=== PATIENT | male | born 1945 | race Caucasian/White ===

== ENCOUNTER 2020-12-13 11:58 | Outpatient (CLI) | payer MEDICARE, SELFPAY ==
[2020-12-13 12:59] LABS: Alanine Aminotransferase 25 U/L (16-63); Albumin Level 3.7 g/dL (3.4-5.0); Alkaline Phosphatase 121 U/L (46-116); Anion Gap 12 mmol/L (8-16); Aspartate Amino Transferase 14 U/L (15-37); Bilirubin Direct 0.3 mg/dL (0-0.2); Bilirubin,Total 0.7 mg/dL (0.00-1.00); Blood Urea Nitrogen 40 mg/dL (7-18); Calcium 9.4 mg/dL (8.5-10.1); Carbon Dioxide 27 mmol/L (21-32); Chloride 101 mmol/L (98-108); Cholesterol 117 mg/dL (0-200); Creatine Kinase 61 U/L (39-308); Estimated Glomerular Filt Rate 39; Glucose 135 mg/dL (70-99); HDL Direct 45 mg/dL (40-60); LDL Cholesterol Calculated 57 mg/dL (<130); Osmolality Calculated 301 mOsm/kg (285-295); Potassium 4.5 mmol/L (3.5-5.1); Sodium 140 mmol/L (136-145); Total Protein 7.1 g/dL (6.4-8.2); Triglycerides 76 mg/dL (0-150)
== END 2020-12-13 11:59 | disposition home or self-care (01) ==
LOC: CHSLAB 12:09
DX: I25.10 Atherosclerotic heart disease of native coronary artery without angina pectoris (principal); E78.49 Other hyperlipidemia
CPT/HCPCS: 36415; 80048; 80061; 80076; 82550

== ENCOUNTER 2020-12-20 13:29 | Outpatient (CLI) | payer MEDICARE, SELFPAY ==
[2020-12-20 14:20] LABS: Anion Gap 13 mmol/L (8-16); Blood Urea Nitrogen 63 mg/dL (7-18); Calcium 9.3 mg/dL (8.5-10.1); Carbon Dioxide 26 mmol/L (21-32); Chloride 101 mmol/L (98-108); Estimated Glomerular Filt Rate 32; Glucose 127 mg/dL (70-99); Osmolality Calculated 310 mOsm/kg (285-295); Potassium 4.5 mmol/L (3.5-5.1); Sodium 140 mmol/L (136-145)
== END 2020-12-20 13:30 | disposition home or self-care (01) ==
LOC: CHSLAB 13:35
DX: I42.0 Dilated cardiomyopathy (principal)
CPT/HCPCS: 36415; 80048

== ENCOUNTER 2020-12-28 13:09 | Outpatient (CLI) | payer MEDICARE, SELFPAY ==
[2020-12-28 14:31] LABS: Anion Gap 12 mmol/L (8-16); Blood Urea Nitrogen 44 mg/dL (7-18); Calcium 8.9 mg/dL (8.5-10.1); Carbon Dioxide 27 mmol/L (21-32); Chloride 100 mmol/L (98-108); Estimated Glomerular Filt Rate 35; Glucose 132 mg/dL (70-99); Osmolality Calculated 301 mOsm/kg (285-295); Potassium 3.7 mmol/L (3.5-5.1); Sodium 139 mmol/L (136-145)
== END 2020-12-28 13:10 | disposition home or self-care (01) ==
LOC: CHSLAB 13:16
DX: I25.5 Ischemic cardiomyopathy (principal)
CPT/HCPCS: 36415; 80048

== ENCOUNTER 2022-02-19 13:20 | Inpatient (IN) | payer MEDICARE, SELFPAY ==
[2022-02-19] VITALS (12 sets, daily range): BP systolic 88–111; BP diastolic 50–65; PULSE 67–83; RESP 16–36; TEMP 35.9–36.6; O2SAT 93–100; BMI 26.1
--- NOTE | ~2022-02-19 | US_ITS ---
US renal BI 02/20/2022 15:41 Procedure: Realtime transabdominal ultrasound of the kidneys and bladder. Indication: Acute on chronic renal failure Comparison: No prior studies for comparison. Findings: Renal echotexture is normal bilaterally without hydronephrosis, contour deforming mass or r enal calculus. The right kidney measures 10.1 cm and left kidney measures 10.4 cm. Bladder within no rmal limits. Impression: 1: Unremarkable renal ultrasound. No stones, masses or hydronephrosis. Reviewed, dictated and finalized at location A. NG MACHINE OPERATOR Impression: 1: Unremarkable renal ultrasound. No stones, masses or hydronephrosis.
--- NOTE | ~2022-02-19 | XR_ITS ---
XR chest 1V portable DATE: 02/19/2022 15:02 INDICATION: Shortness of breath TECHNIQUE: Portable upright AP chest on 02/19/2022 at 1455 hours COMPARISON: None FINDINGS: Status post sternotomy and coronary artery bypass graft surgery. Cardiomegaly. Aortic calcification and unfolding. Emphysematous changes of the lungs, particularly in the upper lung zones. There is prominence of the minor fissure suggesting subpleural edema and there are mild bilateral pleural effusions. There are i nfiltrates and atelectasis in the mid and particularly lower lung zones. IMPRESSION: Congestive changes Bilateral mid and lower lung infiltrates and/or atelectasis, likely due to pulmonary edema. Pneumonia is not excluded. COPD Status post sternotomy and CABG Aortic atherosclerosis Osteopenia Reviewed, dictated and finalized at location A. ALT WORKER IMPRESSION: Congestive changes Bilateral mid and lower lung infiltrates and/or atelectasis, likely due to pulm onary edema. Pneumonia is not excluded. COPD Status post sternotomy and CABG Aortic atherosclerosis Osteopenia
--- NOTE | ~2022-02-19 | US_ITS ---
EXAMINATION: US venous doppler [facility] DATE: 02/20/2022 15:41 INDICATION: Edema . TECHNIQUE: Grayscale images without and with compression and Doppler images of the bilateral lower ex tremity veins were obtained. COMPARISON: None FINDINGS: Partially compressible peroneal vein. The right common femoral vein, profunda (deep) femoral vein, fe moral vein, popliteal vein, posterior tibial veins, gastrocnemius vein, and greater saphenous vein ar e patent. The left common femoral vein, profunda femoral vein, femoral vein, and greater saphenous vein are pat ent. Patient was in pain and unable to continue examination, therefore the left mid and distal femora l, popliteal, posterior tibial, peroneal, and gastrocnemius veins were not evaluated. IMPRESSION: 1. Right peroneal venous thrombosis. The remaining right-sided veins were patent. 2. Limited evaluation of the left lower extremity, exam terminated early due to pain. Results reported telephonically to Farzana Watts RN by Dr. Sanchez at 4:12 PM on 02/20/2022. Reviewed, dictated and finalized at location K. IGRAPH OPERATOR IMPRESSION: 1. Right peroneal venous thrombosis. The remaining right-sided veins were stoner nt. 2. Limited evaluation of the left lower extremity, exam terminated early due to pain. Results reported telephonically to Farzana Watts RN by Dr. Sanchez at 4:12 PM on .
--- NOTE | ~2022-02-19 | CT_ITS ---
EXAMINATION: CT abdomen pelvis wo con DATE: 02/19/2022 15:50 INDICATION: Abdominal pain. Elevated liver function tests. TECHNIQUE: Computed tomography (CT) of the abdomen and pelvis was performed without intravenous contr ast. Automated exposure control and iterative reconstruction technique were employed. Exam dose: 849 .49 mGy-cm total exam DLP. COMPARISON: None. FINDINGS: Mild bilateral gynecomastia. There is prominent atelectasis and consolidation at the lung bases, including middle lobe, lingula an d both lower lobes. Emphysematous changes of the lungs. Cardiomegaly. Coronary artery prominent calcifications. Status post sternotomy. No pericardial effusion. Slight right pleural effusion. There is edema of the abdominal and pelvic graham and proximal thighs. There is surface nodularity of the liver suggesting cirrhosis. Normal splenic size. No apparent hepat ic, splenic, pancreatic, and adrenal or renal space-occupying mass lesion is noted on this limited no ncontrast examination. Prominent diffuse pancreatic atrophy. The gallbladder is present. No bile duct or pancreatic duct dilatation is evident. There is mild ascites primarily in the perihepatic, perisplenic area, right paracolic gutter and depe ndent pelvis. There is severe calcification of the abdominal aorta, celiac and superior mesenteric, renal arteries, inferior mesenteric artery as well as the iliac and femoral arteries. Approximately 3.8 cm infrarena l fusiform abdominal aortic aneurysm. 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 No intraperitoneal or retroperitoneal or pelvic mass lesion or adenopathy is detected. The urinary bladder and prostate gland are unremarkable. Mild sigmoid colon diverticulosis; no CT evidence of diverticulitis. No bowel obstruction or intraper itoneal free air. Small fat-containing umbilical hernia. Bilateral hip osteoarthritis. Mild degenerative change of the thoracic and lumbar spine. IMPRESSION: Cirrhosis, mild ascites Severe atherosclerosis Approximately 3.8 cm infrarenal abdominal aortic aneurysm Mild sigmoid diverticulosis Edema of the abdominal, pelvic graham and finalized Cardiomegaly Prominent atelectasis and/or consolidation at the lung bases Emphysema Status post sternotomy Reviewed, dictated and finalized at Location A. Reviewed, dictated and finalized at location A. IT OPERATOR
--- NOTE | 2022-02-19 13:35 | ECG_ITS ---
Measurements Intervals [place] Rate: 73 P: 140 CO: 212 QRS: 256 QRSD: 117 T: -23 QT: 443 QTc: 490 Interpretive Statements SINUS RHYTHM WITH FIRST DEGREE AV BLOCK INTRAVENTRICULAR CONDUCTION DELAY BORDERLINE R WAVE PROGRESSION, ANTERIOR LEADS LOW QRS VOLTAGE IN LIMB LEADS BORDERLINE ST-T WAVE ABNORMALITY- DIFFUSE LEADS BASELINE WANDER- II, III, AVR, AVL, AVF ABNORMAL ECG NO PREVIOUS ECG AVAILABLE FOR COMPARISON Electronically Signed On 02-19-2022 14:05:19 BLOOD BANK LABORATORY PROFESSIONAL by Wood Vega D.O.
--- NOTE | 2022-02-19 13:53 | ED.SOB ---
HPI - SOB/Dyspnea General Chief Complaint: Shortness of Breath/Dyspnea Stated Complaint: SOB, weakness Time Seen by Provider: 02/19/22 13:38 Source: patient, family, EMS and RN notes reviewed Mode of arrival: EMS Limitations: no limitations History of Present Illness HPI Narrative: This is a 77 year old male with history of CABG, CHF who presents for evaluation of shortness of breath and weakness. He reports cough for 2 weeks. His cough was initially productive with clear phlegm but it is no longer productive. He also reports shortness of breath with exertion for 1 week. He denies chest pain, fever. He does reports decreased PO intake and weakness. He states he is unable to walk because he is so weak. He is also having increasing bilateral leg swelling for 2 weeks. He also reports diarrhea for 2 weeks. He has had 1 episode of nonbloody diarrhea today. He also reports lower abdominal pain with coughing. He denies any medication changes or sick contacts. Related Data Home Medications Medication Instructions Recorded Confirmed clopidogrel 75 mg tablet 75 mg PO DAILY 02/19/22 02/19/22 ezetimibe 10 mg tablet 10 mg PO DAILY 02/19/22 02/19/22 furosemide 20 mg tablet 20 mg PO DAILY 02/19/22 02/19/22 magnesium 200 mg tablet 400 mg PO DAILY 02/19/22 02/19/22 metoprolol succinate 50 mg 25 mg PO DAILY 02/19/22 02/19/22 tablet,extended release 24 hr pantoprazole 40 mg tablet,delayed 40 mg PO QAM 02/19/22 02/19/22 release Allergies Allergy/AdvReac Type Severity Reaction Status Date / Time No Known Allergies Allergy Verified 02/19/22 15:02 Review of Systems Review of Systems: All systems reviewed & are unremarkable except as noted in HPI and below Constitutional: Constitutional: Reports fatigue and Reports weakness Cardiovascular: Cardiovascular: Denies chest pain, Denies syncope, Denies rapid heart rate, Denies irregular heart rhythm, Reports leg edema and Reports dyspnea Respiratory: Respiratory: Reports chest congestion, Reports cough, Denies hemoptysis, Denies excessive phlegm production and Reports dyspnea Gastrointestinal: Gastrointestinal: Reports abdominal pain, Denies hematochezia, Reports diarrhea and Denies vomiting Genitourinary: Genitourinary: Denies hematuria, Denies dysuria, Denies penile discharge and Denies testicular pain Musculoskeletal: Musculoskeletal: Denies joint swelling, Denies loss of height and Denies muscle weakness Neurologic: Denies syncope, Denies focal weakness and Reports weakness [facility] Past Medical History Medical History (Updated 02/19/22 @ 21:35 by Yvette Portillo MD) CHF (congestive heart failure) CHF (congestive heart failure), NYHA class I Chronic GERD Hyperlipidemia Surgical History Surgical History (Updated 02/19/22 @ 17:54 by Shelia Priest NP) H/O cataract extraction Hx of CABG 5 Family History Family History (Updated 02/19/22 @ 17:56 by Shelia Priest NP) Mother Carcinoma of colon Father Heart disease Acute myocardial infarction Social History Social History (Updated 02/19/22 @ 17:57 by Shelia Priest NP) Social History: 2 c [facility] [employer] / ppd lives alone son helps Smoking packs per day: 0.5 Smoking cigarettes per day: 10.0 Smoking status: Current every day smoker Tobacco type: cigarettes Alcohol intake: never Substance use: never Substance use type: does not use Lack of Transportation: No Lack of Food: Never True Current Housing: I Have Housing Concerned About Future Housing: No Difficulty Paying Gas/Electric Bills: No Difficulty Paying for Meds: No Currently Unemployed: No Education: Associate Degree Difficulty w/ Childcare or Family Care: No Spiritual care concerns: No Exam Const: General: alert and ill appearing; No diaphoretic Orientation/consciousness: patient oriented x3 HENMT: Head: normal to inspection Mouth: Yes lip normal and Yes dry mucous membranes Eyes:
[2022-02-19 13:59] LABS: Basophils Percent Auto 0.1 % (0.2-1.2); Eosinophils Percent Auto 0.1 % (0-4.4); Hematocrit 40.2 % (42.0-52.0); Hemoglobin 12.3 g/dL (14.0-18.0); Immature Granulocyte Absolute 0.05 K/mm3 (0.00-0.031); Immature Granulocyte Percent A 0.6 % (0-0.5); Immature Platelet Fraction Pct 12.1 % (0.9-11.2); Lymphocytes Absolute Auto 0.67 K/mm3 (0.9-3.2); Lymphocytes Percent Auto 7.5 % (18.3-44.2); Mean Corpuscular HGB Conc 30.6 g/dl (32-36); Mean Corpuscular Hemoglobin 25.5 pg (26-34); Mean Corpuscular Volume 83.2 fl (80-100); Monocytes Absolute Auto 0.6 K/mm3 (0.1-0.6); Monocytes Percent Auto 6.5 % (2.6-8.5); Neutrophils Absolute Auto 7.6 K/mm3 (1.3-6.7); Neutrophils Percent Auto 85.2 % (45.5-73.1); Nucleated Red Blood Cells Absolute Auto 0.3 K/mm3 (0.0-0.012); Nucleated Red Blood Cells Perc 2.9 % (0.0-0.2); Platelet Count Result 107 k/mm3 (150-375); Red Blood Count 4.83 M/mm3 (4.6-6.20); Red Cell Distribution Width 18.3 % (11.5-14.5)
[2022-02-19 14:11] LABS: INR 2.1; Prothrombin Time 22.9 Seconds (11.1-14.7)
[2022-02-19 14:12] LABS: Partial Thromboplastin Time 38.7 SECONDS (22.3-36.8)
[2022-02-19 14:13] LABS: Alanine Aminotransferase 132 U/L (6-50); Albumin Level 3.5 g/dL (3.5-5.1); Alkaline Phosphatase 117 U/L (38-126); Anion Gap 15 mmol/L (8-16); Aspartate Amino Transferase 65 U/L (17-59); Bilirubin,Total 4.3 mg/dL (0.2-1.3); Blood Urea Nitrogen 81 mg/dL (9-20); Calcium 8.1 mg/dL (8.4-10.2); Carbon Dioxide 16 mmol/L (22-30); Chloride 95 mmol/L (98-107); Estimated CRCL calculation 13 ml/min; Estimated Glomerular Filt Rate 15; Glucose 107 mg/dL (65-110); Potassium 5.3 mmol/L (3.4-5.0); Sodium 126 mmol/L (137-145)
[2022-02-19 14:21] LABS: Acanthocytes 1+ (NORMAL); Anisocytosis 1+ (NORMAL); Burr Cells 1+ (NORMAL); Ovalocytes 1+ (NORMAL); Platelet Estimate Decreased (Adequate); Schistocytes None Seen (NORMAL)
[2022-02-19] MEDS: ALBUTEROL SULFATE NEB 2.5 MG/3 ML INH 5 MG INHALATION (14:29)
[2022-02-19] MEDS: IPRATROPIUM BR 0.02% INH SOLN 0.5 MG/2.5 ML VIAL INHALATION (14:29)
[2022-02-19 14:33] LABS: Lactic Acid Reflex 2.9 mmol/L (0.7-2.0)
[2022-02-19 14:52] LABS: Troponin I 0.054 ng/mL (0.000-0.034)
[2022-02-19 14:53] LABS: Creatine Kinase 72 U/L (55-170)
[2022-02-19 14:55] LABS: Alveolar/Arterial O2 Gradient 89.1 mmHg; Base Excess ABG -9.9 mEq/l (+/-2.0); Carboxyhemoglobin 1.9 % THb (0-2.0); Fractional Inspired Oxygen 28 %; HCO3 ABG 13.7 mEq/l (22.0-26.0); Methemoglobin ABG 0.4 %THb (0-1.5); Oxygen Saturation ABG 95.8 % (95.0-100.0); Oxyhemoglobin 91.9 % THb (90.0-100.0); PO2 FiO2 Ratio Arterial Blood 2.89 %; Reduced Hemoglobin 5.8 %THb (0-5.0); Total Hemoglobin 13.1 g/dL (12.0-18.0); pH ABG 7.358 (7.350-7.450)
[2022-02-19 14:58] LABS: Device NASAL CANNULA; Modified Allen's Test Pass; Site Drawn RIGHT RADIAL
[2022-02-19 15:00] LABS: NT Pro B Type Natriuretic Pept > 30000 pg/mL (19.9-100)
[2022-02-19] MEDS: SODIUM CHLORIDE 0.9% IV 500 ML 999 ML IV CONT ×2 (15:03→17:22)
[2022-02-19 15:09] LABS: Influenza A QL RT-PCR Negative (Negative); Influenza B QL RT-PCR Negative (Negative); SARS-CoV-2 RNA PCR Negative
[2022-02-19 17:18] LABS: Reflex Lactic Acid Yes or No Add Lactic
--- NOTE | 2022-02-19 17:51 | PM.IMHP ---
H&P: HPI History of Present Illness Date/Time: 02/19/22 17:51 Chief Complaint: Shortness of breath Narrative: This is a 77-year-old male patient who has a history of coronary artery disease and congestive heart failure. The patient reports a cough for the last 2 weeks. He has had clear phlegm. He stated that his shortness breath with exertion for 1 week. Patient stated that decreased oral intake and weakness the patient the patient reported decreased oral intake. The patient stated he is unable to walk because he is so weak. He had increased swelling to his lower extremities for last 2 weeks. He is unable to walk due to his weakness. He also reports diarrhea for 2 weeks. Nonbloody diarrhea today. He denies any medication changes. CT of the abdomen was read as the followingCirrhosis, mild ascites Severe atherosclerosis Approximately 3.8 cm infrarenal abdominal aortic aneurysm Mild sigmoid diverticulosis Edema of the abdominal, pelvic graham and finalized Cardiomegaly Prominent atelectasis and/or consolidation at the lung bases Emphysema Status post sternotomy This son was at the bedside asking questions about the results. The patient gave me permission to review the results with his son. The son was not aware of the cirrhosis and mild ascites. Chest x-ray was read as the followingongestive changes Bilateral mid and lower lung infiltrates and/or atelectasis, likely due to pulmonary edema. Pneumonia is not excluded. COPD Status post sternotomy and CABG Aortic atherosclerosis Osteopenia The patient was given nebulizer treatments Rocephin and azithromycin. He was also given an IV bolus for blood pressure of 88/54. Repeat blood pressure is 101/59. H&H is 12.3 and 40.2. Platelet count 107. Potassium slightly elevated to 5.3 and sodium 126. Creatinine is 3.9 is baseline is somewhere between 1.7 to and 2.06. The patient is being admitted to observation status on the date of service of 02/19/2022. Review of Systems Review of Systems: See HPI All systems reviewed & are unremarkable except as noted in HPI and below Constitutional: Constitutional: Reports as per HPI and Reports no additional constitutional complaints Eyes: Eyes: Reports as per HPI and Reports no additional eye complaints ENT: Reports system reviewed and no additional complaints, except as documented and Reports Normal hearing present Cardiovascular: Cardiovascular: Reports no additional cardiovascular complaints Respiratory: Respiratory: Reports no additional respiratory complaints and Reports no additional respiratory complaints Gastrointestinal: Gastrointestinal: Reports as per HPI and Reports no additional gastrointestinal complaints Musculoskeletal: Musculoskeletal: Reports no additional musculoskeletal complaints Integumentary/Breasts: Skin/Breast: Reports system reviewed and no additional complaints, except as docu and Reports as per HPI Neurologic: Reports system reviewed and no additional complaints, except as documented, Reports as per HPI and Reports Normal hearing present Psychiatric: Psychiatric: Reports no additional psychiatric complaints and Reports as per HPI Endocrine: Endocrine: Reports no additional endocrine complaints Hematologic/Lymphatic: Hematologic/Lymphatic: Reports no additional hematologic/lymphatic complaints Allergic/Immunologic: Allergic/Immunologic: Reports no additional allergic/immunologic complaints PMFSH Past Medical History Medical History (Updated 02/20/22 @ 01:19 by Shelia Priest NP) CHF (congestive heart failure) CHF (congestive heart failure), NYHA class I Chronic GERD History of coronary artery disease Hyperlipidemia Surgical History Surgical History H/O cataract extraction Hx of CABG 5 Family History Family History Mother Carcinoma of colon Father Heart disease Acute myocardial infarction
[2022-02-19 18:02] LABS: Lactic Acid 3.2 mmol/L (0.7-2.0)
--- NOTE | 2022-02-19 18:32 | ADMGEN ---
This patient, Jonathan James, was admitted to IMU Room 205-02. Patient/family oriented to hospital policies and general routines including ID bracelet, bed and alarms, visiting hours, pain management, procedures, bathroom and other care routines, personal items, smoking policy, room service/diet, and visiting hours. Information on how to activate the Rapid Response Team has been discussed. Patient/Family are encouraged to report perceived risks to care and to ask questions if they do not understand what they are told or what they should do.
[2022-02-20] VITALS (18 sets, daily range): BP systolic 100–117; BP diastolic 54–63; PULSE 67–87; RESP 16–32; TEMP 36.1–36.2; O2SAT 95–100; BMI 26.1
[2022-02-20] MEDS: IPRATROPIUM BR 0.02% INH SOLN 0.5 MG/2.5 ML VIAL INHALATION ×4 (02:00→20:43)
[2022-02-20 02:15] LABS: Anion Gap 14 mmol/L (8-16); Blood Urea Nitrogen 81 mg/dL (9-20); Calcium 7.7 mg/dL (8.4-10.2); Carbon Dioxide 16 mmol/L (22-30); Chloride 100 mmol/L (98-107); Estimated CRCL calculation 13 ml/min; Estimated Glomerular Filt Rate 15; Glucose 130 mg/dL (65-110); Sodium 130 mmol/L (137-145)
[2022-02-20 03:30] LABS: Troponin I 0.052 ng/mL (0.000-0.034)
[2022-02-20 04:20] LABS: Basophils Percent Auto 0.2 % (0.2-1.2); Eosinophils Percent Auto 0.1 % (0-4.4); Hematocrit 37.2 % (42.0-52.0); Hemoglobin 11.2 g/dL (14.0-18.0); Immature Granulocyte Absolute 0.07 K/mm3 (0.00-0.031); Immature Granulocyte Percent A 0.6 % (0-0.5); Immature Platelet Fraction Pct 11.2 % (0.9-11.2); Lymphocytes Percent Auto 4.8 % (18.3-44.2); Mean Corpuscular HGB Conc 30.1 g/dl (32-36); Mean Corpuscular Hemoglobin 25.1 pg (26-34); Mean Corpuscular Volume 83.2 fl (80-100); Mean Platelet Volume 12.4 fl (7.4-10.4); Monocytes Absolute Auto 0.7 K/mm3 (0.1-0.6); Monocytes Percent Auto 5.8 % (2.6-8.5); Neutrophils Percent Auto 88.5 % (45.5-73.1); Nucleated Red Blood Cells Absolute Auto 0.1 K/mm3 (0.0-0.012); Platelet Count Result 81 k/mm3 (150-375); Red Blood Count 4.47 M/mm3 (4.6-6.20); White Blood Count 12.4 K/mm3 (4.5-10.0)
[2022-02-20 04:30] LABS: Alanine Aminotransferase 113 U/L (6-50); Alkaline Phosphatase 103 U/L (38-126); Anion Gap 12 mmol/L (8-16); Aspartate Amino Transferase 50 U/L (17-59); Bilirubin,Total 3.5 mg/dL (0.2-1.3); Blood Urea Nitrogen 81 mg/dL (9-20); Calcium 7.7 mg/dL (8.4-10.2); Carbon Dioxide 16 mmol/L (22-30); Chloride 96 mmol/L (98-107); Estimated CRCL calculation 13 ml/min; Estimated Glomerular Filt Rate 15; Glucose 123 mg/dL (65-110); Sodium 124 mmol/L (137-145)
[2022-02-20 05:01] LABS: Appearance Urine Clear (Clear); Bilirubin Urine 2+ (Negative); Blood Urine Negative (Negative); Color Urine Yellow (Yellow); Glucose Urine UA Negative (Negative); Ketones Urine Negative (Negative); Leukocyte Esterase Ur Negative LEU/UL (Negative); Nitrate Urine Negative (Negative); Protein Urine Negative (Negative); Specific Grav Ur >= 1.030 (1.001-1.035)
[2022-02-20 05:03] LABS: Add Urine Microscopic? YES; Bacteria Urine Trace /hpf; Mucus Urine Rare /lpf; RBC Urine 0-2 /hpf (0-2); WBC Urine 0-3 /hpf
--- NOTE | 2022-02-20 06:00 | ECHO_ITS ---
Patient Info Name: Jonathan James Age: 77 years : 1945 Gender: Male Ht: 66 in Wt: 161 lbs BSA: 1.86 m2 HR: 79 bpm BP: 116 / 63 mmHg Heart Rhythm: Sinus Rhythm Technical Quality: Good Exam Date: 02/20/2022 10:45 AM Exam Location: [facility] Pulmonary Patient Status: Inpatient Admit Date: 02/19/2022 Staff Ordering Physician: Yvette Portillo MD Extra Hand: Sarah Munoz RDCS Attending Provider: Amadou Lopez MD Referring Physician: Bandar PARRA; Exam Type: CA echo dop color flow w con Study Info Indications I50.9 - Heart failure, unspecified Complete two-dimensional, color flow and Doppler transthoracic echocardiogram is performed with contrast to opacify the left ventricle and to improve the deliniation of the left ventricle endocardial borders. Contrast/Agitated Saline Contrast/Ag. Saline: Definity Amount: 2.00 ml Administered By: Sarah Munoz RDCS Existing IV Access: Yes IV Access Condition: patent with no signs of infiltration Summary 1. Technically difficult study with limited views. Definity contrast administered. 2. Left ventricular chamber dimension is mildly enlarged. 3. Left ventricular systolic function is severely reduced, estimated at 25-30%. 4. There is no increased left ventricular wall thickness. 5. Left ventricular septal wall motion is abnormal with septal motion related to bundle branch block. 6. The left ventricular diastolic function is grade II diastolic dysfunction. 7. Global longitudinal strain is severely elevated at -5 %. 8. Right ventricular chamber dimension is moderately enlarged. 9. Right ventricular systolic function is severely reduced. TAPSE 0.9. 10. There is trace mitral valve regurgitation. 11. There is trace tricuspid valve regurgitation. 12. Mild pulmonary hypertension, estimated pulmonary arterial systolic pressure is 35 mmHg. Left Ventricle Left ventricular chamber dimension is mildly enlarged. Left ventricular systolic function is severely reduced, estimated at 25-30%. There is no increased left ventricular wall thickness. Left ventricular septal wall motion is abnormal with septal motion related to bundle branch block. The left ventricular diastolic function is grade II diastolic dysfunction. There is no thrombus visualized in the left ventricle. Global longitudinal strain is severely elevated at -5 %. Technically difficult study with limited views. Definity contrast administered. Right Ventricle Right ventricular chamber dimension is moderately enlarged. Right ventricular systolic function is severely reduced. TAPSE 0.9. Left Atria Left atrial chamber dimension is mildly enlarged. Right Atria Right atrial chamber dimension is normal. Aortic Valve The aortic valve is trileaflet. There is no aortic valve stenosis. There is trace aortic valve regurgitation. There is mild aortic valve calcification. Pulmonic Valve The pulmonic valve is not well visualized. There is trace pulmonic regurgitation. Mitral Valve The mitral valve has thickened leaflets. There is trace mitral valve regurgitation. The mitral valve annulus is mildly calcified. Tricuspid Valve The tricuspid valve leaflets are normal. There is trace tricuspid valve regurgitation. Mild pulmonary hypertension, estimated pulmonary arterial systolic pressure is 35 mmHg. Pericardium/Pleural The pericardium appears normal. Aorta The aortic root size at the s
[2022-02-20 06:36] LABS: Sodium Urine Random 7 meq/L
[2022-02-20] MEDS: EZETIMIBE 10 MG TABLET PO (09:42)
[2022-02-20] MEDS: FUROSEMIDE 20 MG TABLET PO (09:42)
[2022-02-20] MEDS: CLOPIDOGREL BISULFATE 75 MG TABLET PO (09:42)
[2022-02-20] MEDS: MAGNESIUM OXIDE 400 MG TABLET PO (09:42)
[2022-02-20] MEDS: PANTOPRAZOLE 40 MG TABLET PO (09:42)
[2022-02-20] MEDS: PERFLUTREN LIPID MICROSPHERES 1.5 ML VIAL DILUTED TO 10 ML TOTAL VOLUME IV PUSH (11:15)
--- NOTE | 2022-02-20 12:07 | PM.CNNEP ---
Assessment and Plan Assessment and plan (1) PAUL (acute kidney injury): Code(s): N17.9 - Acute kidney failure, unspecified Status: Acute Assessment and Plan: possibly worsened by infection (pneumonia) follow-up on renal ultrasound and urine testing no critical electrolytes responsive to diuretics follow repeat labs and UOP (2) Stage 3b chronic kidney disease: Code(s): N18.32 - Chronic kidney disease, stage 3b Status: Chronic Assessment and Plan: baseline creatinine runs ~ 1.7 - 2.1mg/dl presumably due to HTN, vascular disease, and age (3) Hyponatremia: Code(s): E87.1 - Hypo-osmolality and hyponatremia Status: Acute Assessment and Plan: due to CHF versus liver cirrhosis versus PAUL versus pneumionia versus combination of all... check TSH, cortisol, serum/urine osmo, and SPEP/UPEP follow trend of sodium for now (4) Community acquired pneumonia: Code(s): J18.9 - Pneumonia, unspecified organism Status: Acute Assessment and Plan: follow culture data continue antibiotic therapy follow respiratory distress (5) Congestive heart failure: Code(s): I50.9 - Heart failure, unspecified Status: Acute Assessment and Plan: suggestive by admission criteria follow up on Echo continue diuretic therapy for now (6) Cirrhosis: Code(s): K74.60 - Unspecified cirrhosis of liver Status: Acute Assessment and Plan: new finding GI consulted for ffurther evaluation Will continue to follow. History of Present Illness Reason for Consult Consult date: 02/20/22 Reason for consult: acute renal failure (on chronic kidney disease) and hyponatremia Chief Complaint Chief complaint: pneumonia vs CHF, acute kidney care History of Present Illness Narrative: The patient is a 77-year-old male with a past medical history as outlined below who presented to [facility] Emergency Room with complaints of shortness of breath. He states the shortness of breath has been going on for about the last 7-10 days and appears to be somewhat worse with exertional activities. Other associated symptoms include a cough all that has been going on for about 2 weeks. His cough has been productive but only with regard to clear sputum. He also reports increased weakness and poor oral intake in association with the symptoms as well. He also states that his weakness has got to the point where he has had difficulty walking and he has noted increasing lower extremity edema as well. Given these ongoing symptoms, he presented to the emergency room for further assessment. Workup and evaluation emergency room demonstrated the patient to be hemodynamically stable but clearly quite debilitated. He was also noted to be somewhat hypotensive with a systolic BP in the 80s and was given IV fluids with improvement in his systolic BP. Routine blood test demonstrated a decline in his kidney function with an elevated BUN and creatinine above baseline in association with mild hyponatremia. Subsequent imaging studies demonstrated cardiomegaly, anasarca, 3.8 cm infrarenal abdominal aortic aneurysm, emphysema, liver cirrhosis, and bilateral mid and lower lung infiltrates and/or atelectasis possibly due to pulmonary edema versus pneumonia. Given these findings, appropriate cultures were obtained and he was started on antibiotic therapy for presumed pneumonia and started on IV diuretic therapy for possible CHF exacerbation as well. Renal consultation was requested due to his acute kidney injury on top of his baseline kidney disease along with his hyponatremia. It is very possible that his acute kidney injury and his hyponatremia are related however given his new finding of liver cirrhosis as well as the possibility of an acute exacerbation of his CHF, these issues can also be related to his hyponatremia as well. Furthermore, he has evidence of emphysema/
--- NOTE | 2022-02-20 12:41 | WPDGICN ---
Assessment and Plan Assessment and plan (1) Cirrhosis: Code(s): K74.60 - Unspecified cirrhosis of liver Status: Acute Assessment and Plan: Cirrhosis of liver peers be a new diagnosis. Patient does have a distant history of alcohol intake but none over the recent 10 year history. I suspect this may be related to congestive heart failure would be consider ?cardiac cirrhosis?. We will obtain some labs to look for any other potential etiologies for cirrhosis. Patient currently abstinent from alcohol. Main treatment would be that directed towards congestive heart failure. (2) CHF (congestive heart failure), NYHA class I: Code(s): I50.9 - Heart failure, unspecified Status: Acute Assessment and Plan: Patient appears to have pulmonary edema on chest x-ray. Elevated BNP suggest congestive heart failure presently. Currently diuretics and followed by cardiology service. He has a known history of coronary artery disease and history of CABG in the past. (3) History of coronary artery disease: Code(s): Z86.79 - Personal history of other diseases of the circulatory system Status: Acute (4) PAUL (acute kidney injury): Code(s): N17.9 - Acute kidney failure, unspecified Status: Acute Assessment and Plan: Patient with azotemia elevated renal function. Currently followed by renal service, Diuretic dosage may be limited by his renal function. GI Consult Note Consult date/time: 02/20/22 12:41 Reason for consult: Cirrhosis of the liver HPI: Jonathan James is a 77 year old male with a history of congestive heart failure, CABG, presented to the emergency room with several week history of progressive fatigue, shortness of breath and cough. Patient reports a history of heavy drinking but discontinued this many years ago. He reports having had coronary artery bypass grafting approximately 10 years ago. Since that time has been treated for congestive heart failure. At home he takes diuretics as well as metoprolol. States he has not had much alcohol intake over the last 10 years. Upon presenting to the emergency room was found to have elevated BNP. As well as azotemia. Chest chest x-ray in the emergency room suggested pulmonary edema and possible underlying COPD. Patient's family history is noncontributory. He does report that his mother had colon cancer. In the emergency room a CT scan of the abdomen was performed which was felt to be consistent with cirrhosis. Patient denies any known exposure to hepatitis. He has never been told he had cirrhosis prior to this. Review of Systems Review of Systems: Review of systems noncontributory. [facility] [place] Past Medical History Medical History (Updated 02/20/22 @ 11:11 by Landon Paez MD) CHF (congestive heart failure) CHF (congestive heart failure), NYHA class I Chronic GERD History of coronary artery disease Hyperlipidemia Surgical History Surgical History H/O cataract extraction Hx of CABG 5 Family History Family History Mother Carcinoma of colon Father Heart disease Acute myocardial infarction Social History Social History (Updated 02/20/22 @ 01:02 by Shelia Priest NP) Social History: The patient lives home alone and his son does help him out. He has 2 children and he is . 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 Patient continues to smoke at least half a pack a cigarettes a day. He stated that he used to drink heavily but does not drink anymore. Code status DNR Smoking packs per day: 0.5 Smoking cigarettes per day: 10.0 Smoking status: Current every day smoker Tobacco type: cigarettes Alcohol intake: never Substance use: never Substance use type: does not use Lack of Transportation: No Lack of Food: Never True Current Housing: [facility]
--- NOTE | 2022-02-20 12:47 | PM.IMPN ---
Progress Note: A&P Assessment and Plan (1) Community acquired pneumonia: Code(s): J18.9 - Pneumonia, unspecified organism Status: Acute Assessment and Plan: -as per protocol the patient was started on azithromycin and Rocephin. -nebulizer treatments. -tailor antibiotics to results of cultures. -sputum culture and blood culture pending. 02/20/2022 interval history: 77-year-old male presented with history of 2 weeks of weakness and diarrhea, patient states poor p.o. intake, patient also complains of shortness of breath with exertion, with edema off abdominal and pelvic wall, patient with history of congestive heart failure suspect suspect related to congestive heart failure however etiology uncertain cardiac echo is pending patient being gently diuresed, patient has history of chronic kidney disease seen by Nephrology and renal ultrasound is ordered, CT scan of abdomen concerning for liver cirrhosis patient with long history of heavy drinking however patient has not drank in 10 years seen by GI does not suspect alcohol related liver cirrhosis, most likely liver congestion, from congestive heart failure, chest x-ray also concerning community-acquired pneumonia treated with ceftriaxone and azithromycin will continue to monitor will have a PT OT evaluate the patient further recommendation to follow. (2) Congestive heart failure: Code(s): I50.9 - Heart failure, unspecified Status: Acute Assessment and Plan: -an echo has been ordered for tomorrow. Type of congestive heart failure unknown as there is no previous echo for comparison -continue for Lasix for now and monitor sodium levels. --continue with metoprolol if his map is greater than 65 (3) Cirrhosis: Code(s): K74.60 - Unspecified cirrhosis of liver Status: Acute Assessment and Plan: -the patient stated that he has to drink heavily. there is minimal fluid on his abdomen GI consult would be greatly appreciated (4) Acute on chronic kidney failure: Code(s): N17.9 - Acute kidney failure, unspecified; N18.9 - Chronic kidney disease, unspecified Status: Acute Assessment and Plan: Hold nephrotoxic medication if able. -renal ultrasound -consult Nephrology -patient's creatinine is 3.9 with a baseline of 1.72-2.06. (5) Acute hyponatremia: Code(s): E87.1 - Hypo-osmolality and hyponatremia Status: Acute Assessment and Plan: Repeat sodium now and in the morning. -could be related to his congestive heart failure with 3rd spacing -check urine sodium and osmolality (6) Chronic GERD: Code(s): K21.9 - Gastro-esophageal reflux disease without esophagitis Status: Acute Assessment and Plan: Continue with pantoprazole (7) Hyperlipidemia: Code(s): E78.5 - Hyperlipidemia, unspecified Status: Acute Assessment and Plan: -continue with with Zetia (8) History of coronary artery disease: Code(s): Z86.79 - Personal history of other diseases of the circulatory system Status: Acute Assessment and Plan: He has a history of a 5 vessel CABG -continue with Plavix (9) Elevated troponin: Code(s): R77.8 - Other specified abnormalities of plasma proteins Status: Acute Assessment and Plan: -continue to trend. The patient denies any chest pain. His troponin is only mildly elevated to 0.054. His platelets are only 107 and he has acute on chronic renal disease, no heparin was started at this time. Could be related to the congestive heart failure or the acute on chronic renal disease. Subjective Date/time seen: 02/20/22 12:47 Chief Complaint: Shortness of breath Narrative: This is a 77-year-old male patient who has a history of coronary artery disease and congestive heart failure.? The patient reports a cough for the last 2 weeks.? He has had clear phlegm.? He stated that his shortness breath with exertion for 1 week.? Patient stated
[2022-02-20 13:31] LABS: Bilirubin Direct 0.5 mg/dL (0-0.3); Bilirubin Indirect 0.9 mg/dL (0-1.1); Bilirubin,Total 2.8 mg/dL (0.2-1.3)
--- NOTE | 2022-02-20 13:58 | PC.NURSE ---
This patient, Jonathan James, was transferred to [331-1 ] on 02/20/22 at 1358. Personal belongings sent with patient. Report given to [Kaela POPE ]. Appropriate documentation sent with patient.
--- NOTE | 2022-02-20 14:25 | PC.NURSE ---
This nurse received patient from IMU 205 at 1400. Report per NIKO Beebe. Patient transported by bed. Family present at bedside. Patient oriented to floor and call light. Call light within reach and reminded to call for any assistance.
[2022-02-20 14:45] LABS: Toxigenic C. Diff NEGATIVE (NEGATIVE)
[2022-02-20 15:52] LABS: Hepatitis B Surface Antigen Negative (Negative)
[2022-02-20 15:58] LABS: HAV RESULT Negative (Negative); Hepatitis B Core IgM Result Negative (Negative)
[2022-02-20 16:10] LABS: Hepatitis C Virus Antibody Negative (Negative)
[2022-02-20] MEDS: HYDROcodone/acetaminophen (*CRX) 5-325 MG TABLET 1 TAB PO (16:17)
[2022-02-20] MEDS: GABAPENTIN 100 MG CAPSULE PO (16:23)
--- NOTE | 2022-02-20 23:46 | PC.NURSE ---
Checked in on patient during shift, was AxOx2 patient mainly expressed need to use urinal and bedpan during my interactions with him. Only medication that was administered during rounding was aloe vesta at 21:17
[2022-02-22 21:53] LABS: Mitochondrial (M2) Ab (IgG) <=20.0 U (<=20.0)
[2022-02-22 22:30] LABS: Osmolality, Urine 395 mOsm/kg (50-1200)
--- NOTE | 2022-02-24 14:33 | PM.DDS ---
Discharge Summary Date and Time Date of : 02/20/22 Time of : 21:45 Provider Pronounced By: Brittany Keane RN/Vandana Hunt RN Probable Cause of Probable Cause of : severe cardiomyopathy Summary Hospital Course: 77-year-old male presented with history of 2 weeks of weakness and diarrhea, patient states poor p.o. intake,? patient also complains of shortness of breath with exertion, with edema off abdominal and pelvic wall,? patient with history of congestive heart failure suspect suspect related to congestive heart failure however etiology uncertain cardiac echo is pending patient being gently diuresed,? patient has history of chronic kidney disease seen by Nephrology and renal ultrasound is ordered, CT scan of abdomen concerning for liver cirrhosis patient with long history of heavy drinking however patient has not drank? in 10 years seen by GI does not suspect alcohol related liver cirrhosis, most likely? liver congestion, from congestive heart failure,? chest x-ray also concerning community-acquired pneumonia treated with ceftriaxone and azithromycin will continue to monitor will have a PT OT evaluate the patient further recommendation to follow. patient on 02/20/2022 at 22:02 Additional Data Confirmation of as documented by pronouncing clinician: Pupillary Reflex, Palpable Pulses, Response to Stimuli, Heart Tones and Breath Sounds Name of Provider Notified: Lucien Time Provider Notified: 21:50 Family Requests Autopsy: No Sales And Service Consultant Notified: Yes Date [facility] Notified of : 02/20/22 Time [facility] Notified of : 22:02
[2022-02-24 19:25] LABS: Ceruloplasmin 35 mg/dL (18-36)
== END 2022-02-20 21:45 | disposition expired | DRG 314 ==
LOC: ANHED 13:56 → ANHIMU 21:35 → ANH3MEDSUR 02-21 16:42 → ANHIMU 02-21 16:42
PROVIDERS: Emergency Medicine; Internal Medicine Gastroenterology; Nurse Practitioner; Admitting Provider Chiropractor; Emergency Provider General Practice; Visit Provider Family Medicine
DX: I42.9 Cardiomyopathy, unspecified (principal); I50.43 Acute on chronic combined systolic (congestive) and diastolic (congestive) heart failure; J43.9 Emphysema, unspecified; K21.9 Gastro-esophageal reflux disease without esophagitis; I25.10 Atherosclerotic heart disease of native coronary artery without angina pectoris; F17.210 Nicotine dependence, cigarettes, uncomplicated; K74.60 Unspecified cirrhosis of liver; Z20.822 Contact with and (suspected) exposure to COVID-19; Z79.899 Other long term (current) drug therapy; Z95.1 Presence of aortocoronary bypass graft; Z82.49 Family history of ischemic heart disease and other diseases of the circulatory system
CPT/HCPCS: 36415; 36600; 71045; 74176; 76775; 80048; 80053; 80074; 81001; 82247; 82248; 82375; 82390; 82550; 82728; 82805; 83050; 83520; 83605; 83880; 83935; 84300; 84484; 85025; 85055; 85610; 85730; 87040; 87045; 87427; 87493; 87636; 93005; 93970; 94640; 96361; 96365; 96375; 99285; A9270; C8929; G0378; J0456; J0696; J7040; Q9957